=== PATIENT | female | born 1995 | race African-American/Black ===

== ENCOUNTER 2020-07-14 22:09 | Emergency (ER) | payer MEDICAID ==
[~2020-07-14] VITALS: Ht 162.6 cm; Wt 81.6 kg
[2020-07-14 23:06] VITALS: BP 136/86
== END 2020-07-14 23:58 | disposition home or self-care (01) ==
LOC: ER 22:23
DX: S67.191A Crushing injury of left index finger, initial encounter (principal); W23.0XXA Caught, crushed, jammed, or pinched between moving objects, initial encounter; Y93.89 Activity, other specified; Y92.89 Other specified places as the place of occurrence of the external cause; Y99.8 Other external cause status
CPT/HCPCS: 73140-TC